=== PATIENT | female | born 1985 | race Caucasian/White ===

== ENCOUNTER → 2018-01-26 | Emergency (ER) | payer OTHER ==
[~2018-01-26] VITALS: Ht 149.9 cm; Wt 54.4 kg
== END | disposition home or self-care (01) ==
LOC: ER 17:31
DX: R07.89 Other chest pain (principal); J45.998 Other asthma

== ENCOUNTER 2019-05-19 10:16 | Emergency (ER) | payer OTHER ==
[~2019-05-19] VITALS: Ht 149.9 cm; Wt 48.1 kg
== END 2019-05-19 14:55 | disposition home or self-care (01) ==
LOC: ER 10:16
DX: R51 Headache (principal)